=== PATIENT | female | born 1960 | race Caucasian/White ===

== ENCOUNTER → 2016-03-08 | Outpatient (CLI) | payer BC ==
[2014-01-02 17:00] VITALS: BP 141/83
[~2016-03-08] MED LIST: ACYC400T PO; ASPI325T4 PO; BUPIVACAINE MPF 0.25% 10 ML VIAL. ONE; CETI10CA PO; DICL1PAT4 TP; DULO60CA44 PO; DULO60CA6 PO; FAMO-63 PO; FLUT16SP2 NS; GABA-586 PO; HYDR-963 PO; MELA1TAB13 PO; META800T PO; META800T21 PO; MULT-290 PO; NAPR220T70 PO; TOPI50TA38 PO; methylPREDNISolone ACETATE 40 MG/ML VIAL. ONE
--- NOTE | 2016-03-09 12:18 | PAIN ---
DATE OF SERVICE: 03/08/2016 DIAGNOSES: 1. Myofascial pain. 2. Cervical degenerative disk disease with post-cervical laminectomy syndrome. 3. Cervicalgia. HISTORY OF PRESENT ILLNESS: The patient is a 55-year-old female returns to follow up, who has been managed with medication management with hydrocodone 10 mg. She has been breaking this in half and taking them about once or twice a day on an average for base of the neck and shoulder pain. The patient reports the pain is becoming more constant describing much more intense in the base of the neck, left shoulder, left upper back as well as the right back causing migraines on the left side of the head. She rates it as a 6 to 7 on a scale of 10, constant aching pain with some photophobia involved with migraine as well, significant tenderness and stiffness in the neck. Also, the patient had had some epidural lysis procedures in 2013, which she reports helped for about 8-12 months after the most recent one, which was in 05/2013. The patient otherwise has no new motor or sensory deficits, but still significant pain as noted, worse with activity, walking, standing, trying to sleep at night movement of the head, driving essentially all activities exacerbating the pain to a significant extent. PHYSICAL EXAMINATION: VITAL SIGNS: The patient's blood pressure is 116/82, pulse 83, respirations 20, temperature 98.0 degrees Fahrenheit, weight is 157 pounds. GENERAL: The patient is awake, alert, oriented, appropriate, has a very pleasant demeanor. HEENT: Shows normocephalic, atraumatic. Extraocular movements are intact and symmetrical. Oral cavity shows mucous membranes moist and pink. Dentition is intact. NECK: Shows anterior throat supple without palpable lymphadenopathy noted. Swallow reflex is symmetrical. CHEST: Shows normal on inspection. Breath sounds are clear to auscultation bilaterally. HEART: Shows S1 and S2 clear. ABDOMEN: Soft, nontender, nondistended. No palpable organomegaly is noted. No rebound or guarding demonstrated. BACK: Shows spine grossly midline, some flattening of the cervical lordotic curvature. Well healed midline surgical scars noted. Normal appearing thoracic kyphosis and lumbar lordotic curvature. The patient's musculature of the cervical spine shows significant tenderness and multiple areas of rope-like very firm musculature throughout the upper, middle, lower distribution of the left paraspinous musculature of the cervical distribution, also the right with less intensity and less sites of trigger point musculature, but present and very tender with palpation bilaterally. into the superior medial trapezius, more on the left than the right into the lateral trapezius, suprascapular and infrascapular musculature on the left as well as the rhomboid musculature bilaterally and the right suprascapular region to less intense pain level, but very tender with very firm rope-like musculature in all these regions bilaterally, again more symptomatic on the left side. PLAN: Options were discussed with the patient, the patient's old chart was reviewed as her current medication regimen updated, current review of systems updated today as well. We discussed trigger point injections. She would like to proceed with this today. I also discussed repeat cervical epidural lysis procedure. We will check for OR booking times for this in the near future and she did very well with this in the past. For the trigger points today, risks were discussed including but not limited to bleeding, infection, possibility of intravascular injection sequelae, spread of local anesthetic and numbness, pneumothorax, side effects of steroid medication, exacerbation of symptoms and poor results regarding pain control. The patient understands and wishes to proceed. The patient will return to the clinic in approximately one week. We will plan on cervical epidural lysis procedure in the operating room when time is available for scheduling. The patient was counseled as to activity levels as well as side effects to be aware of, medication regimen today and activity level with heat and massage therapy recommended as well to continue. The patient will follow up as scheduled. DIAGNOSES: 1. Myofascial pain. 2. Cervical post-laminectomy syndrome with degenerative disk disease. 3. Cervicalgia. PROCEDURE: Trigger point injections of the bilateral cervical paraspinous musculature, bilateral trapezius musculature, bilateral rhomboid musculature, left suprascapular and infrascapular musculature performed under sterile prep and drape using local anesthesia. MEDICATION INJECTED: A total of 40 mg Depo-Medrol and total of 16 mL of 0.25% bupivacaine with negative aspiration in each injection site. CONDITION AT DISCHARGE: Stable. The patient tolerated the procedure well, had no complications. LELO ARROYO MD DR: RADHA/avery JOB#: [id number] / [id number]
== END ==
LOC: PNCL 10:55
PROVIDERS: ATTEND Anesthesiology
DX: M50.30 Other cervical disc degeneration, unspecified cervical region (principal); M96.1 Postlaminectomy syndrome, not elsewhere classified; M19.90 Unspecified osteoarthritis, unspecified site; F32.9 Major depressive disorder, single episode, unspecified; Z72.89 Other problems related to lifestyle; Z98.890 Other specified postprocedural states
CPT/HCPCS: 20553; J1030; J3490

== ENCOUNTER 2016-04-14 11:46 | Day surgery (SDC) | payer OTHER ==
[~2016-04-14 11:46] MED LIST changes: -BUPIVACAINE MPF 0.25% 10 ML VIAL. ONE; +HYDROMORPHONE 2 MG/ML VIAL. IV PRN; +IV RINGERS,LACTATED 1000ML 1,000 ML IV SCH; +LIDOCAINE 1% 1 ML SYRINGE. ID PRN; +MORPHINE SULFATE 2 MG/ML DISP.SYRIN. IV PRN; +ONDANSETRON PF 4 MG/2 ML VIAL. IV PRN; +PROCHLORPERAZINE 10 MG/2 ML VIAL. IV PRN; -methylPREDNISolone ACETATE 40 MG/ML VIAL. ONE
[2016-04-14] MEDS ORDERED: SODIUM CHLORIDE 3 % 500 ML MC ONE (12:15)
[2016-04-14] MEDS ORDERED: HYALURONIDASE, HUMAN RECOMB. 150 UNIT/ML VIAL. IJ PRN (12:15)
[2016-04-14] MEDS ORDERED: IOHEXOL 300 MG/ML 50 ML VIAL. ONE (12:15)
[2016-04-14] MEDS ORDERED: LIDOCAINE 1% 20 ML VIAL. ONE (12:15)
[2016-04-14] MEDS ORDERED: BUPIVACAINE 0.25% 50 ML VIAL. ONE (12:15)
[2016-04-14] MEDS ORDERED: FENTANYL PF 100 MCG/2 ML VIAL. ONE (12:34)
[2016-04-14] MEDS ORDERED: MIDAZOLAM HCL 2 MG/2 ML VIAL. ONE (12:34)
[2016-04-14] MEDS ORDERED: ROCURONIUM 50 MG/5 ML VIAL. ONE (12:34)
[2016-04-14] MEDS ORDERED: LIDOCAINE 2% 100 MG/5 ML DISP.SYRIN. ONE (12:35)
[2016-04-14] MEDS ORDERED: PROPOFOL 20 ML IV ONE (12:35)
[2016-04-14] MEDS ORDERED: methylPREDNISolone ACETATE 80 MG/ML VIAL. ONE (12:39)
[2016-04-14] MEDS ORDERED: BUPIVACAINE MPF 0.25% 30 ML VIAL. ONE (12:39)
[2016-04-14] MEDS ORDERED: methylPREDNISolone ACETATE 40 MG/ML VIAL. ONE (12:39)
[2016-04-14] MEDS ORDERED: LIDOCAINE 1% PF 30 ML VIAL. ONE (12:40)
[2016-04-14] MEDS ORDERED: HYALURONIDASE, HUMAN RECOMB. 150 UNIT/ML VIAL. IJ ONE (13:00)
[2016-04-14] MEDS ORDERED: GLYCOPYRROLATE 1 MG/5 ML VIAL. ONE (13:15)
[2016-04-14] MEDS ORDERED: NEOSTIGMINE METHYLSULFATE 5 MG/5 ML SYRINGE. ONE (13:16)
[2016-04-14] MEDS ORDERED: ONDANSETRON PF 4 MG/2 ML VIAL. ONE (13:26)
[2016-04-14] MEDS ORDERED: PHENYLEPHRINE in 0.9% NACL PF 1 MG/10 ML DISP.SYRIN. IV ONE (13:26)
[2016-04-14] MEDS ORDERED: DEXAMETHASONE SOD PHOS 20 MG/5 ML VIAL. ONE (13:26)
--- NOTE | 2016-04-14 13:29 | DISCH ---
DISCHARGE INSTRUCTIONS Condition on Discharge Condition on Discharge: Stable Activity After Discharge Activity Instructions for Disc: Activity as tolerated, Avoid exertion Lifting Instructions after Dis: No heavy lifting Diet after Discharge Diet after Discharge: Regular Wound Incision Care Wound/Incision Care: Ice to area for comfort Contacting the DRCaitlyn after DC Call your doctor for: Concerns you may have LELO ARROYO MD Apr 14, 2016 13:29
[2016-04-14] MEDS ORDERED: HYDROCODONE/APAP 10/325 TABLET. PO PRN (14:15)
[2016-04-14 14:30] VITALS: BP 105/75
--- NOTE | 2016-04-14 19:48 | OP ---
DATE OF SURGERY: 04/14/2016 PROCEDURE NOTE FOR PAIN CLINIC PREOPERATIVE DIAGNOSIS: Post cervical laminectomy syndrome with cervical radiculopathy and cervical degenerative disk disease. POSTOPERATIVE DIAGNOSIS: Post cervical laminectomy syndrome with cervical radiculopathy and cervical degenerative disk disease. PROCEDURE: Cervical epidural lysis with catheter and C-arm fluoroscopic guidance. ANESTHESIA: General endotracheal. COMPLICATIONS: None. BLOOD LOSS: Less than 5 mL. DESCRIPTION OF PROCEDURE: The patient was consented for procedure. Risks discussed including, but not limited to bleeding, infection, possibility of epidural hematoma and subsequent neurological compromise, dural punctures, headaches, spinal cord and/or nerve damage, side effects of steroid medication, exposure to fluoroscopy and poor results regarding pain control. The patient understands and wished to proceed . The patient was taken to the operating suite #5 and general anesthesia was induced. The patient was turned in prone position with breath sounds clear to auscultation bilaterally. All pressure points were padded and secured. The patient was sterilely prepped and draped in the cervical and upper thoracic distribution in the usual fashion using Betadine prep and sterile drapes. The prep was allowed to dry for 3 minutes prior to draping the patient or starting the procedure. Using C-arm fluoroscopic guidance, both AP and lateral views, the T2-T3 interspace was identified. Using 1% lidocaine with 1:200,000 epinephrine was anesthetized over the skin and the area overlying this region of the thoracic spine. Using a 16-gauge Coude needle with a curved tip and stylet. Epidural space was accessed using C-arm fluoroscopic guidance in both AP and lateral views with preservative-free normal saline loss of resistance technique. Negative aspiration was noted. At this time, the Racz catheter was then advanced through the epidural needle under direct fluoroscopic vision and advanced to the C2-C3 level in the midline. Negative aspiration was again identified and Omnipaque 180 was then instilled with good spread in the epidural space posteriorly. Again, both verified with AP and lateral views and saved for the patient's chart documentation. At this time, a solution of hyaluronidase 2 mL, also 3% hypertonic saline 5 mL and 120 mg Depo-Medrol was then infused through the catheter under direct vision over a period of approximately 5 minutes slowly injected. At this time, the catheter was removed and the needle was removed sterile bandage was applied. The patient tolerated procedure well, had no complications. The patient was awakened without difficulty and was transferred to the recovery room in good and stable condition. The patient will follow up as an outpatient as scheduled in approximately 2 weeks or sooner if necessary and will call with any concerns in the meantime. LELO ARROYO MD DR: RADHA/avery JOB#: [id number] / [id number]
== END 2016-04-14 14:40 | disposition home or self-care (01) ==
LOC: SURG 11:46
PROVIDERS: ATTEND Anesthesiology
DX: M50.11 Cervical disc disorder with radiculopathy, high cervical region (principal); M96.1 Postlaminectomy syndrome, not elsewhere classified
CPT/HCPCS: 62321; J1030; J1040; J1100; J2250; J2370; J2405; J2704; J2710; J3010; J3470; J3490; Q9967; 76001

== ENCOUNTER → 2016-08-14 | Outpatient (CLI) | payer OTHER ==
[~2016-08-14] MED LIST changes: -ASPI325T4 PO; +ASPI325T8 PO; -DICL1PAT4 TP; +FLECTOR1 EACH TP; -HYDROMORPHONE 2 MG/ML VIAL. IV PRN; -IV RINGERS,LACTATED 1000ML 1,000 ML IV SCH; -LIDOCAINE 1% 1 ML SYRINGE. ID PRN; +META-21 PO; -META800T21 PO; -MORPHINE SULFATE 2 MG/ML DISP.SYRIN. IV PRN; -ONDANSETRON PF 4 MG/2 ML VIAL. IV PRN; -PROCHLORPERAZINE 10 MG/2 ML VIAL. IV PRN
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
== END | disposition home or self-care (01) ==
LOC: KCIC MRI 12:40
PROVIDERS: ATTEND Anesthesiology
DX: M51.14 Intervertebral disc disorders with radiculopathy, thoracic region (principal); M48.04 Spinal stenosis, thoracic region; M50.11 Cervical disc disorder with radiculopathy, high cervical region; M48.02 Spinal stenosis, cervical region; Z86.69 Personal history of other diseases of the nervous system and sense organs; E66.9 Obesity, unspecified; Z68.43 Body mass index [BMI] 50.0-59.9, adult; Z87.39 Personal history of other diseases of the musculoskeletal system and connective tissue; M19.90 Unspecified osteoarthritis, unspecified site; F32.9 Major depressive disorder, single episode, unspecified; Z72.89 Other problems related to lifestyle; Z91.040 Latex allergy status; Z91.011 Allergy to milk products; Z91.013 Allergy to seafood
CPT/HCPCS: 72141; 72146

== ENCOUNTER → 2017-10-02 | Outpatient (CLI) | payer OTHER ==
--- NOTE | 2017-10-02 15:43 | KCIC ---
Bilateral Lower Extremity Venous Doppler Ultrasound Indication: Bilateral deep venous thrombosis seen in [place] July 2017. Reevaluate. Anticoagulated. Comparison: None. Imaging referred in history is not available. Procedure: Color Doppler, spectral Doppler, and grayscale images with and without compression are obtained in the area of the common femoral vein, superficial femoral vein - femoral vein junction, main femoral vein (superficial femoral vein) and popliteal vein. Veins of the proximal calf are also imaged. Findings: Right popliteal vein is noncompressible, compatible with nonocclusive deep venous thrombosis, probably chronic. 1 of the right peroneal veins also demonstrates nonocclusive deep venous thrombosis. Right common femoral vein and right femoral vein are compressible. Veins of left lower extremity are compressible and are without evidence of deep venous thrombosis. Impression: 1. Nonocclusive deep venous thrombosis involves the right popliteal vein and one of the peroneal veins. Deep venous thrombosis is probably chronic. 2. No evidence of left lower extremity deep venous thrombosis. Electronically signed by: Emanuel Paiz MD (10/02/2017 3:39 PM) [place] [id number]
== END | disposition home or self-care (01) ==
LOC: KCIC US 13:08
PROVIDERS: ATTEND Family Medicine
DX: I82.431 Acute embolism and thrombosis of right popliteal vein (principal)
CPT/HCPCS: 93970

== ENCOUNTER → 2018-05-02 | Outpatient (CLI) | payer OTHER ==
[~2018-05-02] MED LIST changes: -GABA-586 PO; +GABA300C18 PO; +HYDR-3135 PO; -HYDR-963 PO; +IOHEXOL 300 MG/ML 100ML VIAL. IV ONE
--- NOTE | 2018-05-02 16:16 | KCIC ---
EXAM: Maxillofacial bone CT without contrast. HISTORY: Left-sided face and sinus pain. Parasitic infection. TECHNIQUE: Computed tomographic images the maxillofacial bones were obtained without contrast. *One or more of the following individualized dose reduction techniques were utilized for this examination: 1. Automated exposure control. 2. Adjustment of the mA and/or kV according to patient size. 3. Use of iterative reconstruction technique. COMPARISON: None. FINDINGS: There is mild left and minimal right maxillary sinus mucosal thickening with tiny inferior left maxillary sinus mucous retention cysts. The ostiomeatal units are patent. There is no significant nasal septal deviation. There is no sinus wall erosion or thickening. The mastoid air cells are clear. There is bony remodeling and degenerative subchondral cyst formation involving the right mandible condyle, consistent with osteoarthritis. The orbits are unremarkable. The visualized portions of the brain and calvarium are unremarkable. There is no convincing skin thickening or reticulation of the subcutaneous fat to suggest cellulitis. The visualized parotid glands are unremarkable. There is slight lucency surrounding the root of the second left maxillary molar, possibly due to a tiny periapical abscess or bone resorption status post taoism. IMPRESSION: 1. Mild left and minimal right maxillary sinus mucosal thickening with tiny left maxillary sinus mucous retention cysts. There is no evidence of acute sinusitis. 2. Right temporomandibular joint osteoarthritis. Electronically signed by: Treva Bhagat MD (05/02/2018 4:13 PM) [email or web address]
--- NOTE | 2018-05-02 16:52 | KCIC ---
EXAM: Brain MRI without contrast. HISTORY: Head and face pain. TECHNIQUE: Multiplanar, multisequence magnetic resonance imaging of the brain was performed without contrast. COMPARISON: Maxillofacial bone CT obtained on the same date. FINDINGS: There is no rigidity diffusion to suggest acute or subacute infarction. There is no susceptibility effect to suggest hemorrhage. There is no mass effect or midline shift. There is no hydrocephalus. There are few tiny foci of of T2/FLAIR hyperintensity within the cerebral white matter, the largest of which is seen within the lateral right frontal lobe. The orbits are unremarkable. There is minimal right and mild left maxillary sinus mucosal thickening with tiny left maxillary sinus mucous retention cysts. The mastoid air cells are clear. There is a dominant right vertebral artery, a normal variant. There are normal flow voids within the cerebral vessels. There is no suspicious osseous lesion. IMPRESSION: 1. No acute intracranial finding. 2. Few tiny foci of signal change within the cerebral white matter. The differential includes minimal chronic small vessel disease and changes due to chronic migraine headaches. Electronically signed by: Treva Bhagat MD (05/02/2018 4:49 PM) [email or web address]
--- NOTE | 2018-05-03 08:56 | KCIC ---
CT of the abdomen with IV contrast, without comparison for left renal mass, angiomyolipoma versus incidental sinus, microscopic hematuria. TECHNIQUE: Contiguous helical 3 mm axial images are obtained from the apex of the diaphragm to the iliac crests both prior to and following administration of IV contrast. Sagittal and coronal reformations are evaluated. FINDINGS: There are small patchy areas of atelectasis within the lung bases. There are multilevel degenerative changes of the thoracolumbar spine, most pronounced at the thoracolumbar junction. Schmorl's nodes are seen involving T10, T11, T12, and L1. Chronic wedging at L1 is present. No acute fracture or osseous abnormality is seen. Grade 1 anterolisthesis of L4 and L5 is noted.Within the left lobe of the liver, there is a 9 mm nonenhancing hypodensity which most likely represents a simple cyst or small bile duct hamartoma. No other hepatic parenchymal abnormalities are seen. Gallbladder is fluid distended and grossly unremarkable. Spleen, pancreas, and bilateral adrenal glands are normal in appearance. Both kidneys are free of hydronephrosis or perinephric fluid. At the cortical medullary junction of the posterior midpole of the right kidney, there is a 4 mm hypodensity which is too small to completely characterize, but lacks any suspicious features. On the left, there are 4 similar lesions, the largest of which is in the lateral aspect of the midpole on axial image #36 of series 3, measuring 6 mm. Two 4 mm lesions are seen in the anterior aspect of the lower pole on axial image #50 of series #3. A fourth 4 mm lesion is seen in the anterior lower pole on axial image #53. None of these lesions are large enough to completely characterize, however once again no suspicious features are identified. No elements to suggest angiomyolipoma or neoplasia are evident. Within the lateral aspect of the midpole the left kidney there is a small area of scarring associated with a 3 mm nonobstructing parenchymal calculus. No free or loculated fluid collections are seen within the abdomen or pelvis. No pathologic lymphadenopathy is seen. Mild aortic atherosclerosis is evident. IMPRESSION: 1. Small bilateral renal lesions, the largest which measures 6 mm and is seen on axial image #36 of series 3. All of these lesions are too small to completely characterize but most likely represent simple renal cysts. No characteristics to suggest neoplasia or angiomyolipoma are evident. 2. Thoracolumbar degenerative disc disease, and grade 1 spondylolisthesis of L4 on L5. Electronically signed by: Jonathan Mcallister MD (05/03/2018 8:53 AM) [email or web address]
== END | disposition home or self-care (01) ==
LOC: KCIC CT 15:09
PROVIDERS: ATTEND Family Medicine
DX: J01.90 Acute sinusitis, unspecified (principal); G43.909 Migraine, unspecified, not intractable, without status migrainosus; J34.1 Cyst and mucocele of nose and nasal sinus; M51.34 Other intervertebral disc degeneration, thoracic region; M43.16 Spondylolisthesis, lumbar region; M26.69 Other specified disorders of temporomandibular joint; G93.89 Other specified disorders of brain; N28.89 Other specified disorders of kidney and ureter
CPT/HCPCS: 70486; 70551; 74170; Q9967

== ENCOUNTER → 2020-04-22 | Outpatient (CLI) | payer OTHER ==
[~2020-04-22] MED LIST changes: -DULO60CA44 PO; +DULO60CA45 PO; -IOHEXOL 300 MG/ML 100ML VIAL. IV ONE
--- NOTE | 2020-04-22 12:03 | KCIC ---
Bilateral digital screening mammograms with 3-D tomosynthesis: Reason for examination: Routine screening. Comparison is made to previous study dated 12/10/2015. Bilateral mammograms in CC and oblique projections were obtained with 2-D imaging and 3-D tomosynthes is imaging on a Siemens Inspiration unit and reviewed on the workstation. Interpretation was made wit h the benefit of CAD. The skin and nipples show no abnormalities. No abnormal axillary lymph nodes are seen. The breast par enchyma shows scattered fatty and fibroglandular density. (Breast density: Category B.) There continu es to be a small circumscribed nodule consistent with a probable intramammary lymph node at the 9:00 B position of the right breast. There are no new dominant masses, suspicious calcifications or oliver ectural distortion. Impression: No evidence of malignancy. Recommend routine screening. BI-RAD Category 2: Benign. "Our facility is accredited by the [employer] Mammography Program." This patient's information has been entered into a reminder system for the patient to be notified wit h the results of her examination and a target date for the next mammogram. Electronically signed by: Gisela Colorado MD (04/22/2020 12:01 PM) [email or web address]
--- NOTE | 2020-04-22 14:16 | KCIC ---
EXAM: ABDOMINAL ULTRASOUND. HISTORY: Left lobe hepatic cysts follow-up, seen on CT scan of 05/02/2018. COMPARISON: Abdomen pelvis CT without IV contrast of 05/02/2018. FINDINGS: Sonographic evaluation of the right upper quadrant abdomen was performed. The liver appears normal in parenchymal echotexture. It measures 15 cm long. There are no focal lesio ns. Gallbladder is unremarkable. Wall thickness measures 1.3 mm. No stones, pericholecystic fluid or sono graphic Marino sign. The common duct measures 2.7 mm. The visualized portions of the pancreas reveal no abnormality. The right kidney measures 10.0 x 4.2 x 4.4 cm. Cortical thickness and echogenicity are preserved. The re is no hydronephrosis. The visualized portions of the abdominal aorta and inferior vena cava are grossly patent and normal i n caliber. IMPRESSION: 1. Unremarkable examination of the right upper quadrant abdomen. No hepatic cysts identified. Electronically signed by: Holly Charles MD (04/22/2020 2:14 PM) [id number]
== END ==
LOC: KCIC US 09:00
PROVIDERS: ATTEND Nurse Practitioner
DX: Z12.31 Encounter for screening mammogram for malignant neoplasm of breast (principal); K76.89 Other specified diseases of liver
CPT/HCPCS: 76705; 77063; 77067

== ENCOUNTER → 2020-04-22 | Outpatient (CLI) | payer OTHER ==
--- NOTE | 2020-04-22 10:50 | KCIC ---
Right lower extremity venous duplex ultrasound study compared to similar exam dated October 02, 2017 f or right popliteal pain. TECHNIQUE AND FINDINGS: Real-time grayscale and color spectral Doppler evaluation of the veins of the right lower extremity is performed. The right common femoral, deep femoral, and femoral veins are pa tent and demonstrate normal compressibility and augmentation. Within the right popliteal vein, there is reduced compressibility, with a small amount of extrinsic wall adherent chronic appearing thrombus and preserved patency with normal augmentation. There is normal color flow and compressibility of th e peroneal and posterior tibial veins. IMPRESSION: 1. Small amount of residual chronic nonocclusive thrombus within the popliteal vein, improved from th e prior exam. No acute DVT. Electronically signed by: Jonathan Mcallister MD (04/22/2020 10:48 AM) [id number]
== END ==
LOC: KCIC US 09:06
PROVIDERS: ATTEND Nurse Practitioner
DX: I82.531 Chronic embolism and thrombosis of right popliteal vein (principal)
CPT/HCPCS: 93971